=== PATIENT | female | born 1955 | race African-American/Black ===

== ENCOUNTER 2016-06-09 07:43 | Emergency (ER) ==
--- NOTE | 2016-06-09 09:08 | PROVIDER DOCUMENTATION ---
HPI-General Adult <Roxana Danielle - Last Filed: 06/09/16 10:16> - History of Present Illness -Gen Adult Nature of Presenting Problems: Says that she has had diffuse muscle cramping and that she has been recently started on Robaxin w/o significant relief. Has been fever free during this time and has not had any calf pain or hemoptysis. Location of Pain/Injury: reports: generalized Pain Radiation: reports: no radiation Quality of Pain: reports: cramping Severity: reports: mild Onset/Duration: reports: other (2 weeks ago) Modifying Factors: improves with: nothing <Rocky Brewer - Last Filed: 06/09/16 15:56> - General Chief Complaint: Extremity Pain Stated Complaint: Body cramping for 2 weeks. Time Seen by Provider: 06/09/16 08:19 Allergies/Adverse Reactions: Patient Allergies Allergy/AdvReac Type Severity Reaction Status Date / Time No Known Allergies Allergy Verified 06/09/16 08:04 Home Medications: Home Medication List Medication Instructions Recorded Confirmed Last Taken Type Levothyroxine [Synthroid] 100 microgm PO DAILY 06/16/14 06/09/16 06/09/16 06:30 History Aspirin [Aspirin EC] 81 mg PO DAILY 10/19/14 06/09/16 06/08/16 06:30 History Simvastatin 20 mg PO DAILY 04/29/15 06/09/16 06/08/16 21:00 History Ibuprofen 800 mg PO DAILY 08/26/15 06/09/16 06/07/16 19:00 History Methocarbamol [Robaxin] 500 mg PO Q6H PRN #20 tablet 08/26/15 06/08/16 21:00 Rx Polyethylene Glycol 3350 [Miralax] 510 gm PO DAILY #1 powder 08/26/15 Unknown Rx Prednisone 20 mg PO DAILY #6 tablet 03/10/16 Unknown Rx Diazepam [Valium] 2 mg PO Q8H PRN PRN #10 tablet 06/09/16 Unknown Rx Review of Systems - Adult - REVIEW OF SYSTEMS - ADULT Constitutional: reports: no symptoms reported Eyes: reports: no symptoms reported Ears, Nose, Mouth & Throat: reports: see HPI Cardiovascular: reports: no symptoms reported Respiratory: reports: no symptoms reported Gastrointestinal: reports: no symptoms reported Genitourinary: reports: no symptoms reported Musculoskeletal: reports: other (body aches) Integumentary: reports: no symptoms reported Neurological: reports: no symptoms reported Psychiatric: reports: no symptoms reported Endocrine: reports: no symptoms reported Hematologic/Lymphatic: reports: no symptoms reported <Rocky Brewer - Last Filed: 06/09/16 15:56> Past History - Adult - PAST MEDICAL HISTORY-ADULT Review of Records: reports: Nursing Assessment Review Major Childhood Illnesses: reports: denies history Cardiovascular: reports: CAD, hyperlipidemia Gastrointestinal: reports: denies history Musculoskeletal: reports: arthritis (RA) Endocrine/Immune: reports: thyroid disorder Other Conditions: reports: denies history - PRIOR SURGERIES/PROCEDURES Surgical/Procedure History: reports: cholecystectomy, hysterectomy, orthopedic ( extremity), joint replacement - IMMUNIZATION STATUS Childhood Immunizations: See Nurse Assessment Flu Vaccine: See Nurse Assessment - FAMILY HISTORY Family History: reviewed, not pertinent <Rocky Brewer - Last Filed: 06/09/16 15:56> Physical Exam-General - PHYSICAL EXAM-ADULT Initial Vital Signs Reviewed: Yes - CONSTITUTIONAL General Appearance: appears well, no apparent distress - EYES Eyes: PERRL/EOMI - HEAD, EARS, NOSE, MOUTH & THROAT HENMT: normocephalic/atraumatic - NECK Neck: non-tender - RESPIRATORY Respiratory: chest non-tender, lungs clear, normal breath sounds, no pleuratic chest pain, no respiratory distress, respiratory distress - CARDIOVASCULAR Cardiovascular: normal peripheral pulses - CHEST (BREASTS) Chest/Breast: deferred - GASTROINTESTINAL (ABDOMEN) Abdominal Exam: normal bowel sounds - GENITOURINARY Female Genitalia/Pelvic Exam: deferred Male Genitalia: deferred - LYMPHATIC Lymphatic: no adenopathy - MUSCULOSKELETAL Back Exam: other (reporucible lower muscle back pain) Extremity: normal range of motion <Rocky Brewer - Last Filed: 06/09/16 15:56> Progress - PLAN OF CARE/RESULTS Progress/Plan/Lab Results: Direct Strep - POSITIVE - REASSESSMENT Reassessment #1 Time Reassessed: 10:30 (made aware of laboratory results and treatment plan, made aware to stop taking current Robaxin medication. ) Status: other (satble) <Rocky Brewer - Last Filed: 06/09/16 15:56> Departure - Departure Time of Disposition Order: 10:16 Certified Medical Emergency: Emergent <Roxana Danielle L. - Last Filed: 06/09/16 10:16> - Departure Time of Disposition Order: 10:43 Certified Medical Emergency: Urgent <Rocky Brewer - Last Filed: 06/09/16 15:56> - Departure DIAGNOSIS: Spasm, Myalgia Disposition: HOME 01 Condition: Stable Additional Instructions: ED Follow Up Instructions: You have been treated by a care provider in the Emergency Department. These instructions are being provided to you so you can have an understanding of how to care for yourself upon discharge. Upon discharge from the Emergency Department, you are responsible for making arrangements for follow-up care by a physician of your choice. Take all prescribed medications as directed. Return to the Emergency Department immediately for any new or worsening symptoms. You may call the Physician Referral phone number at [phone] to obtain a list of Physicians who are taking new patients. Prescriptions: Diazepam [Valium] 2 mg PO Q8H PRN PRN #10 tablet PRN Reason: Muscle spasms Referrals: Lino Rivera MD [Primary Care Provider] - Forms: Return to School/Parent Work Instructions: Muscle Pain, Adult Physician Attestation
[2016-06-09 09:26] LABS: AGAP 14; BUN 15 mg/dL (8-22); CALCIUM 8.8 mg/dL (8.8-10.2); CHLORIDE 99 mmol/L (98-107); COSMO 278; POTASSIUM 3.8 mmol/L (3.5-5.1); SODIUM 139 mmol/L (136-145); TCO2 26 mmol/L (25-35)
[2016-06-09 09:29] LABS: MANUAL DIFF NEEDED? NO
[2016-06-09 09:32] LABS: BASO% 0.3 % (0.0-0.8); EOS# 0.07 X1000 (0.0-0.7); HEMATOCRIT 34.4 % (37.0-47.0); HEMOGLOBIN 10.3 g/dL (12.0-16.0); IMM GRAN# 0.02 X1000 (0.0-0.04); IMM GRAN% 0.3 % (0.0-0.5); LYMPH# 2.64 X1000 (1.2-3.4); MCH 25.6 PG (27-31); MCHC 29.9 g/dL (33-37); MCV 85.4 FL (81-99); MONO# 0.56 X1000 (0.11-0.59); MONO% 8.1 % (1.7-9.3); NEUT% 52.3 % (42.2-75.2); PLT 222 X1000 (130-400); RBC 4.03 XMIL (4.2-5.4)
[2016-06-09 11:18] VITALS: BP 121/69
== END 2016-06-09 11:18 | disposition home or self-care (01) ==
LOC: ED 07:43
DX: M79.1 Myalgia (principal); R25.2 Cramp and spasm; M54.5 Low back pain; I25.10 Atherosclerotic heart disease of native coronary artery without angina pectoris; E78.5 Hyperlipidemia, unspecified; M06.9 Rheumatoid arthritis, unspecified; E07.9 Disorder of thyroid, unspecified; Z79.899 Other long term (current) drug therapy; Z79.82 Long term (current) use of aspirin; Z79.52 Long term (current) use of systemic steroids
CPT/HCPCS: 80048; 82550; 85025